=== PATIENT | female | born 2000 | race Native Hawaiian/Other Pacific Islander ===

== ENCOUNTER 2020-08-27 11:06 | Emergency (ER) | payer MEDICAID ==
[2020-08-27 12:06] VITALS: BP 121/64
--- NOTE | 2020-08-27 13:04 | Emergency Department Report ---
ED ENT HPI - General Chief complaint: Sore Throat Stated complaint: SORE THROAT, BODY HOT, HEADACHE Time Seen by Provider: 08/27/20 12:50 Source: patient Mode of arrival: Ambulatory Limitations: No Limitations - History of Present Illness MD complaint: sore throat -: days(s) (2) Location: throat Severity: moderate Severity scale (0 -10): 5 Quality: aching Consistency: constant Worsens with: swallowing, eating Associated Symptoms: fever, pain with swallowing. denies: cough - Related Data Previous Rx's Medication Instructions Recorded Last Taken Type Nystas/Diphen/Xyl Visc/Mylanta 15 ml MM Q6H PRN #120 ml 08/27/20 Unknown Rx [Magic Mouthwash] diphenhydrAMINE [Benadryl CAP] 25 mg PO QHS PRN #20 capsule 08/27/20 Unknown Rx predniSONE [Deltasone] 20 mg PO QDAY #5 tab 08/27/20 Unknown Rx Allergies Allergy/AdvReac Type Severity Reaction Status Date / Time No Known Allergies Allergy Unverified 08/27/20 14:38 ED Dental HPI - General Chief complaint: Sore Throat Stated complaint: SORE THROAT, BODY HOT, HEADACHE Time Seen by Provider: 08/27/20 12:50 Source: patient Mode of arrival: Ambulatory Limitations: No Limitations - Related Data Previous Rx's Medication Instructions Recorded Last Taken Type Nystas/Diphen/Xyl Visc/Mylanta 15 ml MM Q6H PRN #120 ml 08/27/20 Unknown Rx [Magic Mouthwash] diphenhydrAMINE [Benadryl CAP] 25 mg PO QHS PRN #20 capsule 08/27/20 Unknown Rx predniSONE [Deltasone] 20 mg PO QDAY #5 tab 08/27/20 Unknown Rx Allergies Allergy/AdvReac Type Severity Reaction Status Date / Time No Known Allergies Allergy Unverified 08/27/20 14:38 ED Review of Systems ROS: Stated complaint: SORE THROAT, BODY HOT, HEADACHE Other details as noted in HPI Comment: All other systems reviewed and negative ED Past Medical Hx - Past Medical History Previous Medical History?: Yes Additional medical history: Blood disorder IPP - Surgical History Past Surgical History?: Yes Additional Surgical History: Left leg - Medications Home Medications: Home Medications Medication Instructions Recorded Confirmed Last Taken Type Nystas/Diphen/Xyl Visc/Mylanta 15 ml MM Q6H PRN #120 ml 08/27/20 Unknown Rx [Magic Mouthwash] diphenhydrAMINE [Benadryl CAP] 25 mg PO QHS PRN #20 capsule 08/27/20 Unknown Rx predniSONE [Deltasone] 20 mg PO QDAY #5 tab 08/27/20 Unknown Rx ED Physical Exam - General Limitations: No Limitations General appearance: alert, in no apparent distress - Head Head exam: Present: atraumatic, normocephalic - Eye Eye exam: Present: normal appearance, PERRL - ENT ENT exam: Present: mucous membranes moist, TM's normal bilaterally - Expanded ENT Exam Expanded Throat exam: Positive: tonsillomegaly, tonsillar exudate, R peritonsillar mass, L peritonsillar mass - Neck Neck exam: Present: normal inspection, full ROM, lymphadenopathy. Absent: tenderness - Respiratory Respiratory exam: Present: normal lung sounds bilaterally. Absent: respiratory distress - Cardiovascular Cardiovascular Exam: Present: regular rate, normal rhythm. Absent: systolic murmur, diastolic murmur, rubs, gallop - GI/Abdominal GI/Abdominal exam: Present: soft, normal bowel sounds - Extremities Exam Extremities exam: Present: normal inspection - Back Exam Back exam: Present: normal inspection - Neurological Exam Neurological exam: Present: alert, oriented X3 - Psychiatric Psychiatric exam: Present: normal affect, normal mood - Skin Skin exam: Present: warm, dry, intact, normal color. Absent: rash ED Course Vital Signs 08/27/20 12:03 Temperature 99.4 F Pulse Rate 80 Respiratory 16 Rate Blood Pressure 121/64 O2 Sat by Pulse 100 Oximetry ED Medical Decision Making - Medical Decision Making 20-year-old female presents with pharyngitis. ED course: Rapid strep tests ordered rapid strep test negative Patient received 1 dose of Tylenol, 60 mg of prednisone. Fever responsive to one dose of Tylenol. Vital signs stable patient is in no acute or respiratory distress. Discussed findings with patient about the positive strep. Discussed treatment in ED with patient Discussed the patient that strep throat is contagious and to limit sharing spoons and such. Discussed with patient follow-up with primary care physician. Patient verbally states he understands and will comply to follow-up. Critical care attestation.: If time is entered above; I have spent that time in minutes in the direct care of this critically ill patient, excluding procedure time. ED Disposition Clinical Impression: Tonsillitis, Pharyngitis Disposition: TO HOME OR SELFCARE Is pt being admited?: No Does the pt Need Aspirin: No Condition: Stable Instructions: Tonsillitis, [id number], Enlarged Adenoids, Pharyngitis, [id number] Additional Instructions: Make sure to follow up with the primary care physician as discussed. Take all your medications as you've been prescribed. If you have any worsening symptoms or develop new symptoms please return to ED immediately. Referrals: [facility] [Outside] - 3-5 Days [facility] [Outside] - 3-5 Days Forms: Work/School Release Form(ED) Time of Disposition: 14:31
[2020-08-27] MEDS ORDERED: ACETAMINOPEN W/CODEINE 120-12MG ORAL LIQD 5 ML PO ONE (14:08)
[2020-08-27] MEDS ORDERED: predniSONE 20 MG TAB PO ONE (15:00)
== END 2020-08-27 14:50 | disposition home or self-care (01) ==
LOC: ED 11:06
DX: J03.90 Acute tonsillitis, unspecified (principal); Z79.899 Other long term (current) drug therapy; Z98.890 Other specified postprocedural states
CPT/HCPCS: 87116; 87430; 99283; J7512